=== PATIENT | male | born 1935 | race Caucasian/White ===

== ENCOUNTER 2022-01-17 16:36 | Emergency (ER) | payer MEDICARE, BC ==
[~2022-01-17] VITALS: Ht 182.9 cm; Wt 77.1 kg
[2022-01-17] MEDS ORDERED: SIMV-46 PO (16:50)
[2022-01-17] MEDS ORDERED: CEphaleXIN 500 MG CAPSULE PO ONE (17:15)
[2022-01-17] MEDS ORDERED: CEphaleXIN 500 MG CAPSULE ONE (17:20)
[2022-01-17 18:43] LABS: HEMATOCRIT 35.4 % (36.7-47.1); MEAN CORPUSCULAR HEMOGLOBIN 32.7 uug (23.8-33.4); MEAN CORPUSCULAR VOLUME 96.7 fL (73.0-96.2); PLATELET COUNT (AUTO) 239 K/uL (152-348)
[2022-01-17 18:50] LABS: CREATININE 1.1 mg/dL (0.6-1.3); POTASSIUM 4.7 mmol/L (3.5-5.1)
[2022-01-17] MEDS ORDERED: CEPH500C2 PO (19:43)
[2022-01-17 20:03] VITALS: BP 125/79
--- NOTE | 2022-01-17 20:03 | NUR ---
Patient discharged to home in stable condition. Written and verbal after care instructions given. Patient verbalizes understanding of instructions. Stressed follow up or return to ER for worsening s/s.
== END 2022-01-17 20:04 | disposition home or self-care (01) ==
LOC: ER 16:40
DX: L03.031 Cellulitis of right toe (principal); Z86.718 Personal history of other venous thrombosis and embolism; S92.334A Nondisplaced fracture of third metatarsal bone, right foot, initial encounter for closed fracture; X58.XXXA Exposure to other specified factors, initial encounter; Y92.89 Other specified places as the place of occurrence of the external cause
CPT/HCPCS: 36415; 73630; 85025; 85651; 86140; A4663